=== PATIENT | female | born 1990 | race Caucasian/White ===

== ENCOUNTER 2017-09-26 15:24 | Emergency (ER) | payer OTHER ==
[~2017-09-26] VITALS: Ht 177.8 cm; Wt 99.8 kg
[~2017-09-26 15:24] MED LIST: CYCLOBENZAPRINE10 M1 PO; LORAZEPAM1 M1 PO; MOBIC15 M1 PO
[2017-09-26] MEDS ORDERED: MEDROL4 M2 PO (17:31)
[2017-09-26] MEDS ORDERED: NAPROXEN500 M2 PO (17:31)
[2017-09-26] MEDS ORDERED: LIDODERM1 EACH TOP (17:31)
[2017-09-26] MEDS ORDERED: CYCLOBENZAPRINE10 M1 PO (17:31)
--- NOTE | 2017-09-26 17:32 | ED GENERAL ADULT ---
History of Present Illness General Chief Complaint: Low Back Pain/Injury Stated Complaint: LOWER BACK PAIN RADIATING DOWN LEGS Source: patient Exam Limitations: no limitations Vital Signs & Intake/Output Vital Signs & Intake/Output Vital Signs Date Time Temp Pulse Resp B/P B/P Pulse O2 O2 Flow FiO2 Mean Ox Delivery Rate 09/26 1622 98.5 09/26 1616 98.5 94 18 133/90 99 Room Air Allergies Coded Allergies: iodine (HIVES, THROAT SWELLING 12/09/15) shellfish derived (HIVES, THROAT SWELLING 12/09/15) Reconcile Medications Cyclobenzaprine HCl 10 MG TABLET 1 TAB PO QPM PRN pain Cyclobenzaprine HCl 10 MG TABLET 1 TAB PO QPM PRN muscle strain Lidocaine (Lidoderm) 5 % ADH..PATCH 1 PAT TOP DAILY PRN pain may wear up to 12 hours Meloxicam (Mobic) 15 MG TABLET 1 TAB PO DAILY PRN pain Methylprednisolone. (Medrol) 4 MG TAB.DS.PK 1 DP PO AD sciatica 6 on day 1 then reduce by one tablet daily until gone Naproxen 500 MG TABLET 1 TAB PO BID PRN pain Triage Note: PT STATES SHE WAS WALKING AND THEN SHE BEGAN TO HAVE LOW BACK PAIN THAT RADIATES DOWN HER RIGHT LEG. PT STATES THIS HAS HAPPEND BEFORE BUT THIS TIME THE PAIN IS SO BAD THAT SHE HAD TO COME IN. Triage Nurses Notes Reviewed? yes Onset: Gradual Duration: hour(s): Timing: constant : No Patient currently breastfeeds: No HPI: 26-year-old female with a history of anxiety presenting with right low back pain that radiates to her right lower extremity. Pain was gradual onset over the past few hours, and began while she was walking. Denies any trauma or strenuous activity. Has not tried anything for pain relief. Denies numbness or paresthesias to the extremities, fever, IV drug use, saddle anesthesia, urinary/ bowel incontinence/retention. Past History Travel History Traveled to [place] past 21 day No Medical History Any Pertinent Medical History? see below for history Neurological: NONE EENT: NONE Cardiovascular: NONE Respiratory: NONE Gastrointestinal: NONE Hepatic: NONE Renal: NONE Musculoskeletal: NONE Psychiatric: anxiety Endocrine: NONE Blood Disorders: NONE Cancer(s): NONE LONG TERM CARE SOCIAL WORKER/Reproductive: NONE Surgical History Surgical History: non-contributory Psychosocial History Who do you live with Father What is your primary language Frisian Tobacco Use: Current Daily Use Daily Tobacco Use Amount/Type: => 5 Cigarettes daily ETOH Use: occasional use Illicit Drug Use: denies illicit drug use Family History Hx Contributory? No Review of Systems Review of Systems Constitutional: Reports: no symptoms. EENTM: Reports: no symptoms. Respiratory: Reports: no symptoms. Cardiovascular: Reports: no symptoms. GI: Reports: no symptoms. Genitourinary: Reports: no symptoms. Musculoskeletal: Reports: see HPI. Skin: Reports: no symptoms. Neurological/Psychological: Reports: no symptoms. Hematologic/Endocrine: Reports: no symptoms. Immunologic/Allergic: Reports: no symptoms. All Other Systems: Reviewed and Negative Physical Exam Physical Exam General Appearance: well developed/nourished, no apparent distress, alert, awake Head: atraumatic, normal appearance Eyes: Bilateral: normal appearance. Neck: normal inspection, full range of motion, no midline tenderness Respiratory: normal breath sounds, lungs clear Cardiovascular: regular rate/rhythm Gastrointestinal: soft, non-tender Back: normal inspection, normal range of motion, no vertebral tenderness, positive tenderness to palpation of the right lower lumbar muscles. Negative straight leg raise Bilateral lower extremities are neurovascularly intact Patient is able to bear weight and ambulate with a steady gait Extremities: normal inspection, normal range of motion Neurologic/Psych: awake, alert, oriented x 3, normal gait, normal mood/affect Skin: intact, normal color, warm/dry Core Measures ACS in differential dx? No CVA/TIA Diagnosis: No Sepsis Present: No Sepsis Focused Exam Completed? No Progress Differential Diagnoses I considered the following diagnoses in my evaluation of the patient: [MSK strain versus disc herniation versus radiculopathy, low concern for epidural abscess versus vertebral fracture versus cauda equina] Plan of Care: Likely with lumbar radiculopathy. Given Rx naproxen, Flexeril, Lidoderm patches , and Medrol Dosepak. Counseled on supportive care and strict return precautions. Initial ED EKG: none Departure Departure Disposition: HOME OR SELF CARE Condition: Stable Clinical Impression Primary Impression: Lumbar radiculopathy Referrals: Vandana Garcia APRN (PCP/Family) Additional Instructions: Use naproxen, Lidoderm patches, Flexeril, and Medrol Dosepak as prescribed. Apply warm compresses followed by gentle stretching 2-3 times daily. Follow-up with your primary care provider for reevaluation. Return to the emergency department for any new or worsening symptoms. Departure Forms: Customer Survey General Discharge Information Prescriptions: Current Visit Scripts Naproxen 1 TAB PO BID PRN pain #60 TAB Lidocaine (Lidoderm) 1 PAT TOP DAILY PRN pain #30 PAT may wear up to 12 hours Cyclobenzaprine HCl 1 TAB PO QPM PRN pain #30 TAB Methylprednisolone. (Medrol) 1 DP PO AD #1 DP 6 on day 1 then reduce by one tablet daily until gone Critical Care Note Critical Care Note Critical Care Time: non-applicable
[2017-09-26 17:37] VITALS: BP 134/88
== END 2017-09-26 17:39 ==
LOC: ERH 15:24
DX: M54.16 Radiculopathy, lumbar region (principal)